=== PATIENT | male | born 1955 | race Caucasian/White ===

== ENCOUNTER 2018-03-16 10:58 | Day surgery (SDC) | payer OTHER ==
[~2018-03-16] VITALS: Ht 180.3 cm; Wt 50.6 kg
[2018-03-16] MEDS ORDERED: LACTATED RINGERS 1,000 ML IV SCH (11:31)
[2018-03-16] MEDS ORDERED: TAMS0.4C2 PO (11:55)
[2018-03-16] MEDS ORDERED: FOLIC ACID PO (11:55)
[2018-03-16] MEDS ORDERED: BICA50TA PO (11:55)
[2018-03-16] MEDS ORDERED: VITAMIN D3 PO (11:55)
[2018-03-16] MEDS ORDERED: THYR90TA4 PO (11:55)
[2018-03-16] MEDS ORDERED: THYR15TA6 PO (11:55)
[2018-03-16] MEDS ORDERED: PLEASE ENTER HEIGHT AND WEIGHT MC SCH (12:00)
[2018-03-16] MEDS ORDERED: PLEASE ENTER ALLERGIES MC SCH (12:00)
[2018-03-16 12:01] VITALS: BP 101/68
[2018-03-16 12:32] LABS: MICROSCOPIC NOT IND
[2018-03-16 12:32] LABS: BASOPHILS # (AUTO) 0.03 x10^3/uL (0-0.1); BASOPHILS % (AUTO) 0 % (0-1); EOSINOPHILS # (AUTO) 1.04 x10^3/uL (0-0.4); EOSINOPHILS % (AUTO) 10 % (1-7); LYMPHOCYTES # (AUTO) 1.47 x10^3/uL (1-3.4); LYMPHOCYTES % (AUTO) 15 % (22-44); MD NO; MEAN CORPUSCULAR HEMOGLOBIN 35.3 pg (27.5-34.5); MEAN CORPUSCULAR HGB CONC 33.5 g/dL (33.2-36.2); MEAN CORPUSCULAR VOLUME 105.4 fL (81-97); MEAN PLATELET VOLUME 7.9 fL (7.4-10.4); MONOCYTES # (AUTO) 1.42 x10^3/uL (0.2-0.8); MONOCYTES % (AUTO) 14 % (2-9); NEUTROPHILS # (AUTO) 6.03 x10^3/uL (1.8-6.8); NEUTROPHILS % (AUTO) 60 % (42-75); PLATELET COUNT 298 x10^3/uL (130-400); RED BLOOD COUNT 5.08 x10^6/uL (4.38-5.82); RED CELL DISTRIBUTION WIDTH 14.6 % (9.4-14.8)
[2018-03-16 12:33] LABS: CULTURE INDICATED? NO
[2018-03-16 12:42] LABS: ANION GAP 7 mmol/L (5-15); CALCIUM 9.6 mg/dL (8.5-10.1); CHLORIDE 102 mmol/L (98-107); CREATININE 1.27 mg/dL (0.7-1.3)
[2018-03-16] MEDS ORDERED: FENTANYL PF 250 MCG/5ML ONE (13:01)
[2018-03-16] MEDS ORDERED: MIDAZOLAM 1 MG/ML, 2ML ONE (13:01)
[2018-03-16] MEDS ORDERED: CEFAZOLIN 1,000 MG ONE (13:40)
[2018-03-16] MEDS ORDERED: ROCURONIUM 10 MG/ML,10ML ONE (13:40)
[2018-03-16] MEDS ORDERED: EPHEDRINE 50 MG/ML, 1ML ONE (13:40)
[2018-03-16] MEDS ORDERED: GLYCOPYRROLATE 0.2MG/1ML, 5ML ONE (13:40)
[2018-03-16] MEDS ORDERED: ETOMIDATE 40 MG/20 ML ONE (13:40)
[2018-03-16] MEDS ORDERED: NEOSTIGMINE 1 MG/ML, 10ML ONE (13:40)
[2018-03-16] MEDS ORDERED: DEXAMETHASONE 4 MG/ML, 1ML ONE (13:40)
[2018-03-16] MEDS ORDERED: ONDANSETRON 2MG/ML, 2ML ONE (13:40)
[2018-03-16] MEDS ORDERED: PHENYLEPHRINE 10 MG/ML ONE (13:40)
[2018-03-16] MEDS ORDERED: PROPOFOL 10 MG/ML, 20ML ONE (13:40)
[2018-03-16] MEDS ORDERED: OXYcodone 5 MG/5 ML ORAL.SOL UDC PO PRN (15:30)
[2018-03-16] MEDS ORDERED: LORazepam 2 MG/ML, 1ML IVPush PRN (15:30)
[2018-03-16] MEDS ORDERED: ALBUTEROL SULFATE 2.5 MG/3 ML NPPB PRN (15:30)
[2018-03-16] MEDS ORDERED: FENTANYL PF 100 MCG/2ML IV PRN (15:30)
[2018-03-16] MEDS ORDERED: PROMETHAZINE 12.5 MG SUPP PR PRN (15:30)
[2018-03-16] MEDS ORDERED: HYDROmorphone 2 MG/ML, 1ML IV PRN (15:30)
[2018-03-16] MEDS ORDERED: PROMETHAZINE 25 MG/ML, 1ML IV PRN (15:30)
[2018-03-16] MEDS ORDERED: LABETALOL 5MG/ML, 20ML IV PRN (15:30)
[2018-03-16] MEDS ORDERED: hydrALAzine 20 MG/ML, 1ML IV PRN (15:30)
[2018-03-16] MEDS ORDERED: MORPHINE SULFATE 4 MG/ML, 1ML IV PRN (15:30)
[2018-03-16] MEDS ORDERED: ACETAMINOPHEN 325 MG TABLET PO PRN (15:30)
[2018-03-16 15:58] LABS: INTERNATIONAL NORMALIZED RATIO 0.96 (0.93-1.1)
[2018-03-16] MEDS ORDERED: OXYcodone 5 MG/5 ML ORAL.SOL UDC ONE (15:59)
[2018-03-16] MEDS ORDERED: LACTATED RINGERS 500 ML IVBOLUS ONE (16:30)
== END 2018-03-16 18:55 ==
LOC: OUT 10:58
PROVIDERS: ATTEND Student in an Organized Health Care Education/Training Program
DX: C61 Malignant neoplasm of prostate (principal); F17.210 Nicotine dependence, cigarettes, uncomplicated; E03.9 Hypothyroidism, unspecified; D64.9 Anemia, unspecified; E78.5 Hyperlipidemia, unspecified; Z72.89 Other problems related to lifestyle; Z79.01 Long term (current) use of anticoagulants
CPT/HCPCS: 36415; 52648; 80048; 81003; 85025; 85610; 85730; 93005; J0690; J1100; J2250; J2370; J2405; J2704; J2710; J3010; J7120; J3490